=== PATIENT | female | born 1965 | race Caucasian/White ===

== ENCOUNTER 2019-06-21 15:14 | Emergency (ER) | payer MEDICAID ==
[~2019-06-21] VITALS: Ht 142.2 cm; Wt 58.5 kg
[2019-06-21 15:28] VITALS: Ht 142.2 cm; Wt 58.5 kg
[2019-06-21 18:44] VITALS: BP 209/86
== END 2019-06-21 18:44 | disposition home or self-care (01) ==
LOC: ED 15:14
DX: R51 Headache (principal); R11.2 Nausea with vomiting, unspecified
CPT/HCPCS: J0780

== ENCOUNTER 2019-07-28 19:04 | Inpatient (IN) | payer MEDICAID ==
[~2019-07-28] VITALS: Ht 149.9 cm; Wt 55.0 kg
[2019-07-28 19:18] VITALS: Ht 149.9 cm; Wt 55.0 kg
[2019-07-28 19:55] LABS: BASOPHIL % 0.2 % (0-2); PLATELET COUNT 334 x10^3mcL (130-400); RED CELL DISTRIBUTION WIDTH 14.1 % (11.5-14.5)
[2019-07-28 20:15] LABS: CALCIUM 8.4 mg/dL (8.5-10.1); CARBON DIOXIDE 25.3 mmol/L (21-32); CREATININE SERUM 1.2 mg/dL (0.6-1.0); POTASSIUM SERUM 4.4 mmol/L (3.5-5.1)
[2019-07-28 20:20] LABS: BILIRUBIN TOTAL 0.2 mg/dL (0.20-1.00); TOTAL PROTEIN, SERUM 6.6 g/dL (6.4-8.2)
[2019-07-28 20:21] LABS: ALBUMIN 2.4 g/dL (3.4-5.0)
[2019-07-28 23:56] LABS: microscopic required? YES; urine erythrocyte TRACE (NEGATIVE)
[2019-07-29] VITALS (8 sets, daily range): BP systolic 111–176; BP diastolic 38–69
[2019-07-29] LABS: T3 TOTAL 1.13 ng/mL
[2019-07-29 00:07] LABS: CHOLESTEROL/HDL RATIO 3.5; MAGNESIUM 2.4 mg/dL (1.8-2.4); PHOSPHOROUS 4.2 mg/dL (2.5-4.9)
[2019-07-29 00:20] LABS: FREE T4 1.19 ng/dL (0.76-1.46); FREE THYROXINE INDEX 2.9 ug/dL (1.4-4.5); T4(THYROXINE) 8.9 ug/dL (4.7-13.3)
[2019-07-29 01:05] LABS: AMPHETAMINE QUAL UR NONE DETECTED (See below)
[2019-07-29 06:32] LABS: BASOPHIL % 0.4 % (0-2); PLATELET COUNT 279 x10^3mcL (130-400); RED CELL DISTRIBUTION WIDTH 13.4 % (11.5-14.5)
[2019-07-29 06:57] LABS: CALCIUM 7.9 mg/dL (8.5-10.1); CARBON DIOXIDE 24.4 mmol/L (21-32); CREATININE SERUM 1.4 mg/dL (0.6-1.0); MAGNESIUM 2.1 mg/dL (1.8-2.4); PHOSPHOROUS 4.7 mg/dL (2.5-4.9)
[2019-07-30 05:59] VITALS: BP 133/55
[2019-07-30 06:53] LABS: BASOPHIL % 0.4 % (0-2); PLATELET COUNT 297 x10^3mcL (130-400); RED CELL DISTRIBUTION WIDTH 14.1 % (11.5-14.5)
[2019-07-30 07:05] LABS: CALCIUM 7.8 mg/dL (8.5-10.1); CARBON DIOXIDE 24.3 mmol/L (21-32); CREATININE SERUM 1.9 mg/dL (0.6-1.0); POTASSIUM SERUM 3.8 mmol/L (3.5-5.1)
[2019-07-30 08:25] VITALS: BP 134/60
[2019-07-30 12:32] VITALS: BP 150/60
[2019-07-30 18:07] VITALS: BP 128/60
[2019-07-30 21:05] VITALS: BP 145/67
[2019-07-31] VITALS (7 sets, daily range): BP systolic 136–167; BP diastolic 56–71
[2019-07-31 06:16] LABS: BASOPHIL % 0.5 % (0-2); PLATELET COUNT 286 x10^3mcL (130-400); RED CELL DISTRIBUTION WIDTH 13.9 % (11.5-14.5)
[2019-07-31 07:10] LABS: CARBON DIOXIDE 27.6 mmol/L (21-32); CREATININE SERUM 1.7 mg/dL (0.6-1.0); POTASSIUM SERUM 4.1 mmol/L (3.5-5.1)
[2019-08-01] VITALS (8 sets, daily range): BP systolic 128–172; BP diastolic 47–73
[2019-08-02 05:48] VITALS: BP 161/78
[2019-08-02 06:08] LABS: BASOPHIL % 0.2 % (0-2); PLATELET COUNT 275 x10^3mcL (130-400)
[2019-08-02 06:52] VITALS: BP 130/67
[2019-08-02 06:54] LABS: CALCIUM 8.1 mg/dL (8.5-10.1); CARBON DIOXIDE 30.4 mmol/L (21-32); CREATININE SERUM 1.5 mg/dL (0.6-1.0); POTASSIUM SERUM 4.4 mmol/L (3.5-5.1)
[2019-08-02 09:15] VITALS: BP 121/51
[2019-08-02] MEDS ORDERED: ZES5 PO (10:17)
[2019-08-02] MEDS ORDERED: NOR5 PO ×2 (10:17→11:20)
[2019-08-02] MEDS ORDERED: LIPI20 PO (10:18)
[2019-08-02] MEDS ORDERED: LASIX40 MG PO (10:18)
[2019-08-02] MEDS ORDERED: BAY PO (10:18)
[2019-08-02] MEDS ORDERED: LANCETS FS (10:22)
[2019-08-02] MEDS ORDERED: TEST STRIPS1 EACH MC (10:24)
[2019-08-02] MEDS ORDERED: EASY COMFORT ALCO70% TOP (10:24)
[2019-08-02] MEDS ORDERED: BLOOD GLUCOSE1 EAC3 MC (10:25)
[2019-08-02] MEDS ORDERED: HUMULIN R100 U/1 M1 SC (10:28)
[2019-08-02 11:11] VITALS: BP 121/51
[2019-08-02 13:13] VITALS: BP 144/67
== END 2019-08-02 14:33 | disposition home or self-care (01) | DRG 190 ==
LOC: ED 19:04 → DU 22:48 → MU 08-01 17:48
PROVIDERS: Emergency Medicine; Family Medicine; ADMIT Student in an Organized Health Care Education/Training Program
DX: I21.A1 Myocardial infarction type 2 (principal); N17.0 Acute kidney failure with tubular necrosis; I50.33 Acute on chronic diastolic (congestive) heart failure; E43 Unspecified severe protein-calorie malnutrition; E11.65 Type 2 diabetes mellitus with hyperglycemia; J80 Acute respiratory distress syndrome; D64.9 Anemia, unspecified; E11.9 Type 2 diabetes mellitus without complications; I11.0 Hypertensive heart disease with heart failure; E83.51 Hypocalcemia; I16.1 Hypertensive emergency; E78.5 Hyperlipidemia, unspecified; E03.9 Hypothyroidism, unspecified; Z91.14 Patient's other noncompliance with medication regimen; Z79.4 Long term (current) use of insulin; Z68.27 Body mass index [BMI] 27.0-27.9, adult; Z79.899 Other long term (current) drug therapy
CPT/HCPCS: 82962; 83880; 84439; 87804; C9113; G0378; J0360; J1815; J1885; J1940; J2405; J3490; J8597; Q0092

== ENCOUNTER 2020-03-13 17:24 | Inpatient (IN) | payer SELFPAY ==
[~2020-03-13] VITALS: Ht 149.9 cm; Wt 59.9 kg
[~2020-03-13 17:24] MED LIST: BAY PO; BLOOD GLUCOSE1 EAC3 MC; EASY COMFORT ALCO70% TOP; HUMULIN R100 U/1 M1 SC; LANCETS FS; LASIX40 MG PO; LIPI20 PO; NOR5 PO; TEST STRIPS1 EACH MC; ZES5 PO
[2020-03-13 17:33] VITALS: Ht 149.9 cm; Wt 59.9 kg
[2020-03-13 18:10] LABS: BASOPHIL % 0.6 % (0-2); PLATELET COUNT 239 x10^3mcL (130-400); RED CELL DISTRIBUTION WIDTH 13.8 % (11.5-14.5)
[2020-03-13 18:42] LABS: CARBON DIOXIDE 20.4 mmol/L (21-32); CREATININE SERUM 3.2 mg/dL (0.6-1.0); POTASSIUM SERUM 5.1 mmol/L (3.5-5.1)
[2020-03-13 18:44] LABS: ALBUMIN 2.5 g/dL (3.4-5.0); BILIRUBIN TOTAL 0.23 mg/dL (0.20-1.00); TOTAL PROTEIN, SERUM 5.7 g/dL (6.4-8.2)
[2020-03-13 19:18] LABS: UA SPECIFIC GRAVITY 1.025 (1.005-1.035); microscopic required? YES; urine erythrocyte 2+ (NEGATIVE)
[2020-03-13 20:48] LABS: T3 TOTAL 1.25 ng/mL
[2020-03-13 20:50] VITALS: BP 177/71
[2020-03-13 20:53] LABS: FREE T4 1.27 ng/dL (0.76-1.46); T4(THYROXINE) 8.8 ug/dL (4.7-13.3)
[2020-03-14 05:30] VITALS: BP 190/83
[2020-03-14 07:29] LABS: BASOPHIL % 0.7 % (0-2); PLATELET COUNT 217 x10^3mcL (130-400); RED CELL DISTRIBUTION WIDTH 13.8 % (11.5-14.5)
[2020-03-14 07:47] LABS: CALCIUM 8.1 mg/dL (8.5-10.1); CARBON DIOXIDE 21.9 mmol/L (21-32); CREATININE SERUM 3.2 mg/dL (0.6-1.0); POTASSIUM SERUM 4.5 mmol/L (3.5-5.1)
[2020-03-14 08:22] VITALS: BP 212/85
[2020-03-14 13:09] VITALS: BP 208/80
[2020-03-14 17:25] VITALS: BP 156/63
[2020-03-14 20:35] VITALS: BP 193/81
[2020-03-15 05:35] VITALS: BP 145/65
[2020-03-15 07:07] LABS: BASOPHIL % 0.3 % (0-2); PLATELET COUNT 227 x10^3mcL (130-400)
[2020-03-15 07:53] VITALS: BP 180/65
[2020-03-15 08:15] LABS: CARBON DIOXIDE 21.5 mmol/L (21-32); CREATININE SERUM 3.3 mg/dL (0.6-1.0); PHOSPHOROUS 6.7 mg/dL (2.5-4.9); POTASSIUM SERUM 4.8 mmol/L (3.5-5.1)
[2020-03-15 12:00] VITALS: BP 156/61
[2020-03-15] MEDS ORDERED: APR50 PO (14:37)
[2020-03-15] MEDS ORDERED: L20 PO (14:37)
[2020-03-15 15:23] VITALS: BP 137/49
== END 2020-03-15 17:40 | disposition home or self-care (01) | DRG 682 ==
LOC: ED 17:24 → DU 18:58
PROVIDERS: Emergency Medicine; Internal Medicine; ADMIT Student in an Organized Health Care Education/Training Program; ATTEND Student in an Organized Health Care Education/Training Program
DX: N17.0 Acute kidney failure with tubular necrosis (principal); E43 Unspecified severe protein-calorie malnutrition; I50.33 Acute on chronic diastolic (congestive) heart failure; I16.1 Hypertensive emergency; I13.0 Hypertensive heart and chronic kidney disease with heart failure and stage 1 through stage 4 chronic kidney disease, or unspecified chronic kidney disease; D64.9 Anemia, unspecified; E78.5 Hyperlipidemia, unspecified; E11.21 Type 2 diabetes mellitus with diabetic nephropathy; E11.22 Type 2 diabetes mellitus with diabetic chronic kidney disease; E03.9 Hypothyroidism, unspecified; Z79.899 Other long term (current) drug therapy; Z79.82 Long term (current) use of aspirin; Z79.01 Long term (current) use of anticoagulants; Z91.19 Patient's noncompliance with other medical treatment and regimen; Z79.891 Long term (current) use of opiate analgesic; Z79.84 Long term (current) use of oral hypoglycemic drugs; Z79.4 Long term (current) use of insulin
CPT/HCPCS: 82962; 83880; 84439; G0378; J1940; J2405; J3490; Q0092